=== PATIENT | female | born 1985 | race Caucasian/White ===

== ENCOUNTER 2017-05-22 13:38 | Inpatient (IN) | payer BC, OTHER ==
[~2017-05-22] VITALS: Ht 175.3 cm; Wt 78.6 kg
[~2017-05-22 13:38] MED LIST: OXYC-57 PO; PRENTAB69 PO
[2017-05-22] MEDS ORDERED: KETOROLAC TROMETHAMINE 30 MG/ML VIAL IV STA (16:08)
[2017-05-22] MEDS ORDERED: ACETAMINOPHEN 500 MG TAB PO STA (16:08)
--- NOTE | 2017-05-22 16:10 | EMERGENCY ROOM VISIT NOTE ---
History Report prepared by Patrizia: Jerrell Stiles Under the Supervision of: Dr. Geoff Lozano M.D. First contact with patient: 15:56 Chief Complaint: CHEST PAIN Stated Complaint: BREATHING, CHEST PAIN Nursing Triage Summary: Pt reports SOB and chest pain radiating into left shoulder blade for 3 days. feeling faint and lightheaded. pt reports started BC 2 months ago. Seen at [facility] and was referred for PE workup. pt reports recent flight to and from [place]. pt also reports abd pain and spotting, passed possible tissue 05/07. last period was 04/05. History of Present Illness The patient is a 31 year old white female with a past medical history of thrombocytopenia and anxiety who presents to the ED with a cc of persistent sharp chest pain beginning 3 days ago. Positive left shoulder blade pain, shortness of breath, visual disturbances, lightheadedness, bloody green mucous. Negative breast tenderness, bleeding, cough, fevers, chills, rashes, trauma. She states that she started getting the chest pain after flying back from a trip. The patient notes that the pain makes her breathing difficult. The patient says that she started control 2 months ago. She states that she has been spotting for 2 weeks. She says that she has no history of blood clots in the legs or lungs. Source of History: patient Onset: 3 days ago Position: chest Quality: sharp, other (pain) Timing: other (persistent) Associated Symptoms: + SOB, No fevers, No cough, No rash Note: Positive left shoulder blade pain, lightheadedness, visual disturbances, bloody green mucous. No trauma, breast tenderness, bleeding. Review of Systems See HPI for pertinent positives and negatives. A total of ten systems were reviewed and were otherwise negative. Past Medical & Surgical Medical Problems: (1) section Family History No pertinent family history Social History Smoking Status: Former Smoker Marital Status: Occupation Status: employed Current/Historical Medications Scheduled Acetaminophen Tab (Tylenol), 975 MG PO PRN UD Control Pills ( Control Pills), 1 TAB PO DAILY Naproxen (Aleve), 440 MG PO PRN UD Rivaroxaban (Xarelto), 15 MG PO BID Sertraline (Zoloft), 50 MG PO DAILY Allergies Coded Allergies: No Known Allergies (Unverified , 09/03/11) Physical Exam Vital Signs Date Time Temp Pulse Resp B/P (MAP) Pulse Ox O2 Delivery O2 Flow Rate FiO2 05/22/17 20:05 102 18 123/77 99 Room Air 05/22/17 16:53 36.5 82 18 113/68 99 Room Air 05/22/17 13:48 97 Room Air 05/22/17 13:43 36.9 120 18 136/86 97 Room Air Physical Exam GENERAL: Awake, alert, well-appearing, NAD HENT: Normocephalic, atraumatic. EYES: Normal conjunctiva. Sclera non-icteric. NECK: Supple. No nuchal rigidity. FROM. RESPIRATORY: CTAB, no rhonchi, wheezing, crackles CARDIAC: RRR, no MRG ABDOMEN: Soft, NTND, BS+ MSK: No reproducible chest wall TTP, no LE edema NEURO: GCS 15, CN 2-12 intact, moves all 4s on command SKIN: No rash or jaundice noted. No skin changes evident. Medical Decision & Procedures ER Provider Diagnostic Interpretation: Radiology results as stated below per my review and radiologist interpretation: CHEST CTA for PULMONARY ARTERIES CT DOSE: 464.33 mGycm HISTORY: Atypical chest pain. TECHNIQUE: Multiaxial CT images of the chest were performed following the intravenous administration of contrast to evaluate the pulmonary arteries. Maximal intensity projection images were also obtained. A dose lowering technique was utilized adhering to the principles of ALARA. COMPARISON STUDY: Chest 05/22/2017. FINDINGS: Normal caliber thoracic aorta with no evidence for dissection. The heart is normal in size. No evidence for right-sided heart strain. Trace left pleural effusion. There are multiple bilateral lower lobe segmental and subsegmental pulmonary emboli, left greater than right. No mediastinal or hilar lymphadenopathy. The visualized liver, spleen, and adrenal glands are unremarkable. The central airways are patent. No pneumothorax. There are few small peripheral airspace opacities seen within the base of the left lower lobe. These likely represent pulmonary infarcts. IMPRESSION: 1. Bilateral lower lobe pulmonary emboli. 2. Small peripheral airspace opacities seen within the base of the left lower lobe consistent with pulmonary infarcts. 3. Trace left pleural effusion. Electronically signed by: Edd Sal M.D. 05/22/2017 6:00 PM Dictated Date/Time: 05/22/2017 5:56 PM SINGLE VIEW CHEST CLINICAL HISTORY: Atypical chest pain. Dyspnea. FINDINGS: An AP, portable, upright chest radiograph is obtained. No prior studies are available for comparison at the time of dictation. The cardiomediastinal silhouette is unremarkable. There is minimal left basilar atelectasis. The lungs and pleural spaces are otherwise clear. No pneumothorax is seen. The bony thorax is grossly intact. IMPRESSION: No active disease in the chest. Electronically signed by: Darnell Latif M.D. 05/22/2017 5:00 PM Dictated Date/Time: 05/22/2017 4:59 PM Laboratory Results 05/22/17 16:38 Red Blood Count 4.69, Mean Corpuscular Volume 83.4, Mean Corpuscular Hemoglobin 28.6, Mean Corpuscular Hemoglobin Concent 34.3, Mean Platelet Volume 10.5, Neutrophils (%) (Auto) 79.5, Lymphocytes (%) (Auto) 14.2, Monocytes (%) (Auto) 5.9, Eosinophils (%) (Auto) 0.2, Basophils (%) (Auto) 0.1, Neutrophils # (Auto) 6.83, Lymphocytes # (Auto) 1.22, Monocytes # (Auto) 0.51, Eosinophils # (Auto) 0.02, Basophils # (Auto) 0.01 05/22/17 16:38 Test 05/22/17 16:38 05/22/17 16:58 White Blood Count 8.60 K/uL (4.8-10.8) Red Blood Count 4.69 M/uL (4.2-5.4) Hemoglobin 13.4 g/dL (12.0-16.0) Hematocrit 39.1 % (37-47) Mean Corpuscular Volume 83.4 fL (80-100) Mean Corpuscular Hemoglobin 28.6 pg (25-34) Mean Corpuscular Hemoglobin Concent 34.3 g/dl (32-36) Platelet Count 171 K/uL (130-400) Mean Platelet Volume 10.5 fL (7.4-10.4) Neutrophils (%) (Auto) 79.5 % Lymphocytes (%) (Auto) 14.2 % Monocytes (%) (Auto) 5.9 % Eosinophils (%) (Auto) 0.2 % Basophils (%) (Auto) 0.1 % Neutrophils # (Auto) 6.83 K/uL (1.4-6.5) Lymphocytes # (Auto) 1.22 K/uL (1.2-3.4) Monocytes # (Auto) 0.51 K/uL (0.11-0.59) Eosinophils # (Auto) 0.02 K/uL (0-0.5) Basophils # (Auto) 0.01 K/uL (0-0.2) RDW Standard Deviation 41.4 fL (36.4-46.3) RDW Coefficient of Variation 13.7 % (11.5-14.5) Immature Granulocyte % (Auto) 0.1 % Immature Granulocyte # (Auto) 0.01 K/uL (0.00-0.02) Prothrombin Time 9.8 SECONDS (9.0-12.0) Prothromb Time International Ratio 0.9 (0.9-1.1) Activated Partial Thromboplast Time 26.6 SECONDS (21.0-31.0) Partial Thromboplastin Ratio 1.0 Anion Gap 8.0 mmol/L (3-11) Est Creatinine Clear Calc Drug Dose 126.5 ml/min Estimated GFR () 136.0 Estimated GFR (Non- 117.4 BUN/Creatinine Ratio 17.4 (10-20) Calcium Level 9.5 mg/dl (8.5-10.1) Troponin I < 0.015 ng/ml (0-0.045) Human Chorionic Gonadotropin, Qual NEG (NEG) Magnesium Level 1.9 mg/dl (1.8-2.4) Total Bilirubin 0.5 mg/dl (0.2-1) Direct Bilirubin < 0.1 mg/dl (0-0.2) Aspartate Amino Transf (AST/SGOT) 14 U/L (15-37) Alanine Aminotransferase (ALT/SGPT) 18 U/L (12-78) Alkaline Phosphatase 74 U/L (45-117) Total Protein 7.5 gm/dl (6.4-8.2) Albumin 3.4 gm/dl (3.4-5.0) Lipase 180 U/L (73-393) Thyroid Stimulating Hormone (TSH) 2.100 uIu/ml (0.300-4.500) Laboratory results reviewed by me Medications Administered Medications (Trade) Dose Ordered Sig/Jesu Route Start Time Stop Time Status Last Admin Dose Admin Acetaminophen (Tylenol Tab) 1,000 mg NOW STAT PO 05/22/17 16:08 05/22/17 16:11 DC 05/22/17 16:42 1,000 MG Ketorolac Tromethamine (Toradol Inj) 30 mg NOW STAT IV 05/22/17 16:08 05/22/17 16:11 DC 05/22/17 16:42 30 MG Fentanyl Citrate (Fentanyl Inj) 50 mcg NOW ONCE IV 05/22/17 16:15 05/22/17 16:16 DC 05/22/17 16:45 50 MCG Rivaroxaban (Xarelto Tab) 15 mg DAILY STAT PO 05/22/17 18:36 05/22/17 18:37 DC 05/22/17 19:12 15 MG ECG Indication: chest pain Rate (beats per minute): 91 Rhythm: normal sinus Findings: other (normal intervals, normal axis, no other STS changes or TWI) Change: Patient's electrocardiogram interpreted by me. ED Course 1603: The patient was evaluated in room B10. A complete history and physical exam was performed. 1819: Discussed the patient's case with Mylene Metcalf. 1820: Upon reexamination, the patient was resting comfortably. 1844: I reevaluated the patient and she is resting. Discussed results and discharge instructions: she verbalized understanding and agreement. The patient will be discharged. 1945: I reevaluated the patient and talked to her mother. The patient will be evaluated for further treatment. 1999: Discussed the patient's case with Dr. Jatinder Metcalf marketing director assisted living. The patient will be evaluated for further treatment and disposition. Medical Decision The patient is a 31 year old white female with a past medical history of thrombocytopenia and anxiety who presents to the ED with a cc of persistent sharp chest pain beginning 3 days ago. Positive left shoulder blade pain, shortness of breath, visual disturbances, lightheadedness, bloody green mucous. Negative breast tenderness, bleeding, cough, fevers, chills, rashes, trauma. Differential diagnosis: Etiologies such as cardiac ischemia, aortic dissection, pulmonary embolism, pneumonia, pneumothorax, musculoskeletal, infections, pericarditis, myocarditis , esophageal rupture, gastrointestinal, as well as others were entertained. Patient was seen and evaluated the bedside. Patient had been referred from [facility] for a PE workup. The patient had been complaining of some pleuritic pain. Patient also had complained of some bloody tinged green mucus. Patient did have a recent plane flight from [place]. Patient does take oral contraceptives. Patient is a nonsmoker. Patient was not tachypnea nor hypoxic on exam. Patient did have blood work completed, EKG, troponin, chest x-ray, and CT PE protocol. Patient's blood work fairly unremarkable. Troponin negative. EKG nonischemic. Patient's chest x-ray was clear. Patient' s CT PE did show bilateral lower lobe pulmonary emboli. I did discuss the patient with the hospitalist and they agreed that Xarelto would be reasonable to start on the patient. The patient did have an ambulatory trial. The patient did complain some mild dizziness and was mildly tachycardic. Patient was never tachypneic nor hypoxic. I did discuss treatment further with the patient and family. They stated that they would prefer an observation period. Patient was given a first dose of Xarelto. I did discuss the patient with the hospitalist who agreed that the patient would be further evaluated and treated. Medication Reconcilliation Current Medication List: was personally reviewed by me Blood Pressure Screening Patient's blood pressure: Normal blood pressure Consults Time Called: 1810 Consulting Physician: Mylene Metcalf Returned Call: 1820 Discussed the patient's case with Mylene Metcalf. Additional Consults: Time Called: 1858 Consulted Physician: Dr. Jatinder Metcalf marketing director assisted living Returned Call: 1900 Additional Comments: Discussed the patient's case with Dr. Jatinder Metcalf marketing director assisted living. The patient will be evaluated for further treatment and disposition. Impression Primary Impression: Pulmonary emboli Additional Impression: Chest pain, pleuritic Critical Care I have personally spent greater than 35 minutes of critical care time in the direct management of this patient. This includes bedside care, interpretation of diagnostic studies, and testing, discussion with consultants, patient, and family members, and other required patient management activities. This 35 minutes is in excess of all separately billable procedures. Scribe Attestation The scribe's documentation has been prepared under my direction and personally reviewed by me in its entirety. I confirm that the note above accurately reflects all work, treatment, procedures, and medical decision making performed by me. Departure Information Dispostion Transfer Acute Care Facility Prescriptions Rivaroxaban (XARELTO) 15 Mg Tab 15 MG PO BID for 7 Days, #14 TAB Prov: Geoff Lozano M.D. 05/22/17 Referrals Buddy Mott M.D. (PCP) Patient Instructions My [facility] Problem Qualifiers Primary Impression: Pulmonary emboli Pulmonary embolism type: other Chronicity: acute Acute cor pulmonale presence: without acute cor pulmonale Qualified Codes: I26.99 - Other pulmonary embolism without acute cor pulmonale
[2017-05-22] MEDS ORDERED: FENTANYL CITRATE INJ 50 MCG/1 ML 2 ML VIAL IV ONE (16:15)
[2017-05-22] MEDS ORDERED: OPTIRAY 320 IV PRN (16:30)
[2017-05-22] MEDS ORDERED: BCPILLS PO (16:46)
[2017-05-22] MEDS ORDERED: NAPR1TAB9 PO (16:46)
[2017-05-22] MEDS ORDERED: SERT50TA PO (16:46)
[2017-05-22] MEDS ORDERED: ACET325T96 PO (16:46)
--- NOTE | 2017-05-22 17:01 | DIAGNOSTIC IMAGING REPORT ---
SINGLE VIEW CHEST CLINICAL HISTORY: Atypical chest pain. Dyspnea. FINDINGS: An AP, portable, upright chest radiograph is obtained. No prior studies are available for comparison at the time of dictation. The cardiomediastinal silhouette is unremarkable. There is minimal left basilar atelectasis. The lungs and pleural spaces are otherwise clear. No pneumothorax is seen. The bony thorax is grossly intact. IMPRESSION: No active disease in the chest. Electronically signed by: Darnell Latif M.D. 05/22/2017 5:00 PM Dictated Date/Time: 05/22/2017 4:59 PM
[2017-05-22 17:16] LABS: INR 0.9 (0.9-1.1); PTT PATIENT 26.6 SECONDS (21.0-31.0)
[2017-05-22 17:18] LABS: BASO % 0.1 %; BASO ABS # 0.01 K/uL (0-0.2); EOS % 0.2 %; EOS ABS # 0.02 K/uL (0-0.5); HEMATOCRIT 39.1 % (37-47); HEMOGLOBIN 13.4 g/dL (12.0-16.0); IG# 0.01 K/uL (0.00-0.02); LYMPH % 14.2 %; LYMPH ABS # 1.22 K/uL (1.2-3.4); MEAN CELL VOLUME 83.4 fL (80-100); MEAN CORPUSCULAR HEMOGLOBIN 28.6 pg (25-34); MEAN CORPUSCULAR HGB CONC 34.3 g/dl (32-36); MEAN PLATELET VOLUME 10.5 fL (7.4-10.4); MONO % 5.9 %; MONO ABS # 0.51 K/uL (0.11-0.59); NEUT % 79.5 %; NEUT ABS # 6.83 K/uL (1.4-6.5); PLATELET COUNT 171 K/uL (130-400); RED CELL DISTRIBUTION WIDTH CV 13.7 % (11.5-14.5); RED CELL DISTRIBUTION WIDTH SD 41.4 fL (36.4-46.3)
[2017-05-22 17:35] LABS: BLOOD UREA NITROGEN 12 mg/dl (7-18); CALCIUM 9.5 mg/dl (8.5-10.1); CARBON DIOXIDE 25 mmol/L (21-32); CREATININE 0.68 mg/dl (0.60-1.20); GLUCOSE 88 mg/dl (70-99); POTASSIUM 4.2 mmol/L (3.5-5.1); SODIUM 138 mmol/L (136-145)
--- NOTE | 2017-05-22 18:01 | DIAGNOSTIC IMAGING REPORT ---
CHEST CTA for PULMONARY ARTERIES CT DOSE: 464.33 mGycm HISTORY: Atypical chest pain. TECHNIQUE: Multiaxial CT images of the chest were performed following the intravenous administration of contrast to evaluate the pulmonary arteries. Maximal intensity projection images were also obtained. A dose lowering technique was utilized adhering to the principles of ALARA. COMPARISON STUDY: Chest 05/22/2017. FINDINGS: Normal caliber thoracic aorta with no evidence for dissection. The heart is normal in size. No evidence for right-sided heart strain. Trace left pleural effusion. There are multiple bilateral lower lobe segmental and subsegmental pulmonary emboli, left greater than right. No mediastinal or hilar lymphadenopathy. The visualized liver, spleen, and adrenal glands are unremarkable. The central airways are patent. No pneumothorax. There are few small peripheral airspace opacities seen within the base of the left lower lobe. These likely represent pulmonary infarcts. IMPRESSION: 1. Bilateral lower lobe pulmonary emboli. 2. Small peripheral airspace opacities seen within the base of the left lower lobe consistent with pulmonary infarcts. 3. Trace left pleural effusion. Electronically signed by: Edd Sal M.D. 05/22/2017 6:00 PM Dictated Date/Time: 05/22/2017 5:56 PM
[2017-05-22] MEDS ORDERED: RIVAROXABAN TAB 15 MG TAB PO STA (18:36)
[2017-05-22] MEDS ORDERED: RIVA1.5T PO (18:51)
--- NOTE | 2017-05-22 20:56 | DIAGNOSTIC IMAGING REPORT ---
CT SCAN OF THE ABDOMEN AND PELVIS WITHOUT IV CONTRAST CLINICAL HISTORY: Generalized abdominal pain. COMPARISON STUDY: Chest CT dated 05/22/2017. TECHNIQUE: CT scan of the abdomen and pelvis is performed from the lung bases to the proximal femora. Images are reviewed in the axial, sagittal, and coronal planes. IV contrast was not administered for this examination as per the referring clinician. Note that the examination was performed in suboptimal fashion without oral and IV contrast. A dose lowering technique was utilized adhering to the principles of ALARA. CT DOSE: 418.21 mGy.cm FINDINGS: Lung bases: The heart is normal in size and without pericardial effusion. Subpleural consolidative change is seen at the left lung base. The right lung base is clear. A trace left pleural effusion is identified. Liver: The unenhanced liver is normal in size, contour, and attenuation. There is no intrahepatic biliary ductal dilatation. Gallbladder: Unremarkable. Spleen: Normal in size and attenuation. Pancreas: Unremarkable. Adrenal glands: Unremarkable. Kidneys: The unenhanced kidneys are normal in size and without hydronephrosis. The renal collecting system is filled with excreted contrast. This degrades assessment for renal calculi. There is no evidence of contour deforming renal mass lesion. Abdominal vasculature: The abdominal aorta is normal in course and caliber. Bowel: There is mild colonic fecal retention. No bowel obstruction is seen. The appendix is well-visualized and normal. Peritoneum: There is no intraperitoneal free air or abdominal ascites. There is a small fat-containing umbilical hernia. Lymphadenopathy: None. Pelvic viscera: The bladder is decompressed and filled with excreted contrast. No bladder abnormality is seen. Uterus and adnexa are normal as imaged. Skeletal structures: No lytic or blastic lesions are seen. IMPRESSION: 1. Suboptimal examination without oral and IV contrast 2. There are no acute infectious or inflammatory findings in the abdomen or pelvis. 3. Subpleural opacities at the left lung base likely represent small pulmonary infarcts given the history of pulmonary emboli. Electronically signed by: Darnell Latif M.D. 05/22/2017 8:55 PM Dictated Date/Time: 05/22/2017 8:51 PM
[2017-05-22 21:24] LABS: ALBUMIN 3.4 gm/dl (3.4-5.0); ALKALINE PHOSPHATASE 74 U/L (45-117); ALT/SGPT 18 U/L (12-78); AST/SGOT 14 U/L (15-37); LIPASE 180 U/L (73-393); TOTAL PROTEIN 7.5 gm/dl (6.4-8.2)
[2017-05-22] MEDS ORDERED: SERTRALINE HCL 50 MG TAB PO ONE (22:05)
[2017-05-22 22:10] VITALS: BP 119/83; PULSE 86; TEMP 36.7; O2SAT 96; Ht 175.3 cm; Wt 78.6 kg
[2017-05-22] MEDS ORDERED: LORAZEPAM 2 MG/ML 1 ML VIAL IV PRN (22:15)
[2017-05-22] MEDS ORDERED: TRAMADOL HCL 50 MG TAB PO PRN (22:15)
[2017-05-22] MEDS ORDERED: ACETAMINOPHEN 325 MG TAB PO PRN (22:15)
[2017-05-22] MEDS ORDERED: MoRPHine SULFATE 4 MG/ML 1 ML CARP\\VIAL IV PRN (22:15)
[2017-05-22] MEDS ORDERED: PROCHLORPERAZINE INJ 5 MG in SYRINGE 4 ML IV PRN (22:15)
[2017-05-22] MEDS ORDERED: KETOROLAC TROMETHAMINE 15 MG/ML VIAL IV. STA (22:21)
[2017-05-22] MEDS ORDERED: SODIUM CHLORIDE 0.9% 1000ML 1,000 ML IV ONE (22:30)
[2017-05-22 23:57] VITALS: BP 109/70; PULSE 81; TEMP 36.5; O2SAT 98
[2017-05-23 04:24] VITALS: BP 102/63; PULSE 79; TEMP 36.5; O2SAT 98
--- NOTE | 2017-05-23 05:06 | HISTORY & PHYSICAL EXAMINATION ---
DATE OF ADMISSION: 05/22/2017 PRIMARY CARE DOCTOR: Dr. Mott. CHIEF COMPLAINT: Chest pain, shortness of breath. HISTORY OF PRESENT ILLNESS: History obtained from patient, mother and records. Medical history significant for mood disorder, intermittent tobacco abuse, history of panic attacks. Patient was in [place] a few days ago for work, had to deal with delayed flight, not moving around as much. The last few days, patient noted shortness of breath, pleuritic chest pain more on the left. No unusual cough symptoms. Intermittent achy leg pain. Patient also noted floaters in both eyes last few days. Denies headache, blurred vision. Some achy abdominal discomfort. Some nausea, no dysuria, no diarrhea. Patient was seen at PCP's office and sent to the Emergency Room. A CAT scan showed bilateral lower lobe pulmonary emboli, small peripheral airspace opacities in the base of left lower lobe consistent with pulmonary infarct, trace left pleural effusion. No evidence of right-sided heart strain. Patient given Xarelto in the ER. No prior history of blood clots. OCP started for endometriosis a few months ago. Patient uncomfortable going home. MEDICAL HISTORY: As above. SURGERIES: She has had dental surgery, laparoscopy, gynecologic procedures. HOME MEDICATIONS: Include Aleve, Zoloft, Tylenol. ALLERGIES: No known drug allergies. FAMILY HISTORY: Blood clots. PERSONAL AND SOCIAL HISTORY: Few cigarettes a day to none. 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 REVIEW OF SYSTEMS: As per HPI. All 10 systems reviewed. All other ROS negative. PHYSICAL EXAMINATION: VITAL SIGNS: Blood pressure 138/70, pulse rate 86, RR 16, temperature 36.6, sats 98 on room. GENERAL: Noted to be anxious, no respiratory distress. SKIN: Normal color. Warm. HEENT: Leaf palpebral conjunctivae. No ptosis. Dry mucosa. NECK: Supple. No tenderness. CHEST: Clear to auscultation. No tenderness. HEART: Regular rate and rhythm, no murmur. ABDOMEN: Soft, nontender. EXTREMITIES: No edema. No overt tenderness. No gross deformities. NEUROLOGIC: Coherent. No gross focality. LABORATORY DATA: Hemoglobin was noted to be 13.4, hematocrit 39, white cell count 8.6, platelet count 171. Sodium 130, potassium 4.2, chloride 105, CO2 25, BUN 12, creatinine 0.6, glucose was noted to be 88. Troponin noted to be 0.015. CT chest angio as above. CT abdomen and pelvis showed no acute pathology. EKG as per my interpretation, normal sinus rhythm, no ischemia. ASSESSMENT: 1. Acute pulmonary embolism. Patient predisposed by recent travel, OCP use, possible family history. Xarelto has already been started at the ER but the patient is uncomfortable going home. Rule out lower extremities as source of lung clot. 2. Mood disorder, at baseline as per patient 3. intermittent tobacco abuse. 4. Visual floaters, both eyes. No other eye symptoms 5. Vague abdominal discomfort Unremarkable CT abdomen pelvis findings Rule out UTI PLAN: PCU Xarelto Stop OCP. Venous LE Dopplers Analgesia for L pleuritic chest pain likely from pleural involvement secondary to pulmonary infarcts on CT. Home in the morning if patient comfortable. Ophthalmology evaluation for visual floaters. Check UA Patient counseled to stop smoking. DVT prophylaxis, Xarelto. Full code. MTDD
[2017-05-23 05:45] LABS: BASO % 0.2 %; BASO ABS # 0.01 K/uL (0-0.2); EOS % 0.6 %; EOS ABS # 0.04 K/uL (0-0.5); HEMATOCRIT 35.2 % (37-47); IG# 0.01 K/uL (0.00-0.02); LYMPH ABS # 1.77 K/uL (1.2-3.4); MEAN CORPUSCULAR HEMOGLOBIN 28.6 pg (25-34); MEAN CORPUSCULAR HGB CONC 34.1 g/dl (32-36); MEAN PLATELET VOLUME 10.4 fL (7.4-10.4); MONO ABS # 0.59 K/uL (0.11-0.59); NEUT ABS # 4.14 K/uL (1.4-6.5); PLATELET COUNT 152 K/uL (130-400); RED CELL DISTRIBUTION WIDTH CV 13.8 % (11.5-14.5); RED CELL DISTRIBUTION WIDTH SD 41.8 fL (36.4-46.3); WHITE BLOOD COUNT 6.56 K/uL (4.8-10.8)
--- NOTE | 2017-05-23 06:39 | DIAGNOSTIC IMAGING REPORT ---
VENOUS DOPPLER LWR EXT BILA HISTORY: Pain. Edema. leg pain COMPARISON STUDY: None. FINDINGS: There is normal compressibility, flow, and augmentation within the bilateral lower extremity deep venous systems. IMPRESSION: No DVT within the right or left lower extremity. The above report was generated using voice recognition software. It may contain grammatical, syntax or spelling errors. Electronically signed by: Anibal Singleton M.D. 05/23/2017 6:38 AM Dictated Date/Time: 05/23/2017 6:38 AM
[2017-05-23 07:27] VITALS: BP 100/65; PULSE 69; TEMP 36.7; O2SAT 99
[2017-05-23] MEDS ORDERED: RIVAROXABAN TAB 15 MG TAB PO SCH (09:00)
[2017-05-23 10:46] VITALS: BP 110/72; PULSE 82; TEMP 36.8; O2SAT 98
--- NOTE | 2017-05-23 13:43 | Progress Note ---
Medicine Progress Note Date & Time of Visit: May 23, 2017 at 13:11. Subjective Pt was seen and examined Sitting at the edge of the bed with no distress Pt said that she feels better She said that her vision improved Denies any chest pain, palpitation, dizziness Objective Last 8 Hrs Date Time Temp Pulse Resp B/P (MAP) Pulse Ox O2 Delivery O2 Flow Rate FiO2 05/23/17 12:00 Room Air 05/23/17 10:46 36.8 82 20 110/72 (85) 98 Room Air 05/23/17 08:00 Room Air 05/23/17 07:27 36.7 69 16 100/65 (77) 99 Physical Exam: General- No acute distress Head- atraumatic Eyes- PERRL, EOMI ENT- oropharynx clear Neck- supple, no JVD Lungs- No wheezing Heart- regular rhythm; no murmur Abdomen- normal bowel sounds, soft Extremities-no calf tenderness Neuro- alert, oriented x 3; PERRL, EOMI Skin- warm & dry Laboratory Results: Last 24 Hours Test 05/22/17 16:38 05/22/17 16:58 05/23/17 05:19 05/23/17 06:15 White Blood Count 8.60 K/uL 6.56 K/uL Red Blood Count 4.69 M/uL 4.19 M/uL Hemoglobin 13.4 g/dL 12.0 g/dL Hematocrit 39.1 % 35.2 % Mean Corpuscular Volume 83.4 fL 84.0 fL Mean Corpuscular Hemoglobin 28.6 pg 28.6 pg Mean Corpuscular Hemoglobin Concent 34.3 g/dl 34.1 g/dl Platelet Count 171 K/uL 152 K/uL Mean Platelet Volume 10.5 fL 10.4 fL Neutrophils (%) (Auto) 79.5 % 63.0 % Lymphocytes (%) (Auto) 14.2 % 27.0 % Monocytes (%) (Auto) 5.9 % 9.0 % Eosinophils (%) (Auto) 0.2 % 0.6 % Basophils (%) (Auto) 0.1 % 0.2 % Neutrophils # (Auto) 6.83 K/uL 4.14 K/uL Lymphocytes # (Auto) 1.22 K/uL 1.77 K/uL Monocytes # (Auto) 0.51 K/uL 0.59 K/uL Eosinophils # (Auto) 0.02 K/uL 0.04 K/uL Basophils # (Auto) 0.01 K/uL 0.01 K/uL RDW Standard Deviation 41.4 fL 41.8 fL RDW Coefficient of Variation 13.7 % 13.8 % Immature Granulocyte % (Auto) 0.1 % 0.2 % Immature Granulocyte # (Auto) 0.01 K/uL 0.01 K/uL Prothrombin Time 9.8 SECONDS Prothromb Time International Ratio 0.9 Activated Partial Thromboplast Time 26.6 SECONDS Partial Thromboplastin Ratio 1.0 Sodium Level 138 mmol/L Potassium Level 4.2 mmol/L Chloride Level 105 mmol/L Carbon Dioxide Level 25 mmol/L Anion Gap 8.0 mmol/L Blood Urea Nitrogen 12 mg/dl Creatinine 0.68 mg/dl Est Creatinine Clear Calc Drug Dose 126.5 ml/min Estimated GFR () 136.0 Estimated GFR (Non- 117.4 BUN/Creatinine Ratio 17.4 Random Glucose 88 mg/dl Calcium Level 9.5 mg/dl Troponin I < 0.015 ng/ml Human Chorionic Gonadotropin, Qual NEG Magnesium Level 1.9 mg/dl Total Bilirubin 0.5 mg/dl Direct Bilirubin < 0.1 mg/dl Aspartate Amino Transf (AST/SGOT) 14 U/L Alanine Aminotransferase (ALT/SGPT) 18 U/L Alkaline Phosphatase 74 U/L Total Protein 7.5 gm/dl Albumin 3.4 gm/dl Lipase 180 U/L Thyroid Stimulating Hormone (TSH) 2.100 uIu/ml Urine Color YELLOW Urine Appearance CLEAR Urine pH 5.5 Urine Specific [place] 1.034 Urine Protein NEG Urine Glucose (UA) NEG Urine Ketones NEG Urine Occult Blood NEG Urine Nitrite NEG Urine Bilirubin NEG Urine Urobilinogen NEG Urine Leukocyte Esterase NEG Assessment & Plan Acute pulmonary embolism. CTA chest showed bilateral lower lobe pulmonary emboli. Small peripheral airspace opacities seen within the base of the left lower lobe consistent with pulmonary infarcts. Mostly provoke due to OCP starting about 2 months ago and recently traveling to [place] Starting on Xarelto, case aide called pharmacy and will only cost pt $45 Doppler of LE showed no DVT within the right or left lower extremity. Xarelto side effects discussed with pt such abnormal bleeding (hematuria and bloody stools) Echo pending Will need to be on anticoagulant for at least 3 months Discontinue OCP for now, recommended pt to follow with PCP or [employer] for other OCP options Advised pt to stop smoking Consider hypercoagulable work up once off Xarelto Visual disturbances Seeing flutter in both eyes Possible related to migraine since pt has hx of migraine case discussed with Dr. Earl, rather to see pt on Friday as an outpatient Appt schedule on 05/26 @ 9:[address] Earl Endometriosis Recently starting on OCP, will discontinue due to acute PE Follow up with [employer]/PCP Anxiety Continue zoloft stable Tobacco abuse Counseling on smoking cessation DVT px on Xarelto CODE STATUS FULL CODE Disposition Will discharge home today Current Inpatient Medications: Current Inpatient Medications Medications (Trade) Dose Ordered Sig/Jesu Route Start Time Stop Time Status Last Admin Dose Admin Ioversol (Optiray 320) 100 ml UD PRN IV 05/22/17 16:30 05/26/17 16:29 Acetaminophen (Tylenol Tab) 650 mg Q4H PRN PO 05/22/17 22:15 06/21/17 22:14 05/23/17 07:58 650 MG Tramadol HCl (Ultram Tab) not relieved by tylenol @ Q6H PRN PO 05/22/17 22:15 06/21/17 22:14 Prochlorperazine Edisylate 5 mg/ Syringe 5 ml @ 5 mls/min Q6H PRN IV 05/22/17 22:15 06/21/17 22:14 Lorazepam (Ativan Inj) 0.5 mg Q4H PRN IV 05/22/17 22:15 06/21/17 22:14 Morphine Sulfate (MoRPHine SULFATE INJ) 4 mg Q3H PRN IV 05/22/17 22:15 06/05/17 22:14 Sertraline HCl (Zoloft Tab) 50 mg HS PO 05/23/17 21:00 06/22/17 20:59 Rivaroxaban (Xarelto Tab) 15 mg BID PO 05/23/17 09:00 06/22/17 08:59 05/23/17 07:55 15 MG
[2017-05-23 15:05] VITALS: BP 106/69; PULSE 77; TEMP 36.9; O2SAT 98
--- NOTE | 2017-05-23 16:30 | ECHOCARDIOGRAM REPORT ---
*NOTICE TO RECEIVING REPUBLICAN AGENCY This information is strictly Confidential and protected under [place] law. [place] law prohibits you from making any further disclosure of this information unless further disclosure is expressly permitted by the written consent of the person to whom it pertains or is authorized by law. A general authorization for the release of medical or other information is not sufficient for this purpose. Hospital accepts no responsibility if the information is made available to any other person, INCLUDING THE PATIENT. Interpretation Summary * Name: ESPERANZA WELCH Study Date: 05/23/2017 01:57 PM BP: 110/72 mmHg * Patient Location: C.2T\S\S229\S\1 HR: 82 * : 1985 (M/d/yyyy) Gender: Female Height: 69 in * Age: 31 yrs Ethnicity: [place] Weight: 173 lb * Ordering Physician: Cristi Huerta * Referring Physician: Concetta Nix PA-C * Performed By: Concetta Alonso RDCS * * Reason For Study: PULMONARY EMBOLISM * BSA: 1.9 m2 * -- Conclusions -- * Normal LV chamber size and wall thickness. * Normal LV systolic function, EF 60-65%. * No segmental left ventricular wall motion abnormalities are noted. * Normal diastolic function. * The right ventricular cavity size is normal (basal dimension <4.2 cm in right ventricular apical 4-chamber view). Normal RV systolic function by TAPSE. * No significant valvular pathology. Procedure Details * A complete two-dimensional transthoracic echocardiogram was performed (2D, M-mode, Doppler and color flow Doppler). Left Ventricle * The left ventricle is normal in size. * There is normal left ventricular wall thickness. * Left ventricular systolic function is normal. * No segmental left ventricular wall motion abnormalities are noted. * Ejection Fraction = 55-60%. * The left ventricular wall motion is normal. Right Ventricle * The right ventricular cavity size is normal (basal dimension <4.2 cm in right ventricular apical 4-chamber view). * The right ventricular systolic function is normal as assessed by tricuspid annular plane systolic excursion (TAPSE) (normal >1.5 cm). Atria * The left atrial size is normal. * Right atrial size is normal. * No ASD detected; PFO is not assessed. Mitral Valve * The mitral valve is normal in structure and function. Tricuspid Valve * The tricuspid valve is normal in structure and function. Aortic Valve * The aortic valve is normal in structure and function. Pulmonic Valve * The pulmonary valve is not well seen, but the Doppler examination is normal without significant regurgitation or stenosis. Great Vessels * The aortic root is normal size. Pericardium/Pleural * There is no pericardial effusion. Left Ventricular Diastolic Function * Pulse wave TDI of the anterior and posterior mitral annulas demonstrates normal LV relaxation MMode 2D Measurements and Calculations IVSd 0.76 cm IVSs 1.2 cm LVIDd 3.8 cm LVIDs 2.6 cm LVPWd 1.1 cm LVPWs 1.3 cm IVS/LVPW 0.72 FS 32.3 % EDV(Teich) 60.9 ml ESV(Teich) 23.6 ml EF(Teich) 61.3 % EDV(cubed) 53.7 ml ESV(cubed) 16.7 ml EF(cubed) 68.9 % % IVS thick 51.5 % % LVPW thick 21.3 % LV mass(C)d 101.6 grams LV mass(C)dI 52.3 grams/m\S\2 LV mass(C)s 90.4 grams LV mass(C)sI 46.6 grams/m\S\2 SV(Teich) 37.3 ml SI(Teich) 19.2 ml/m\S\2 SV(cubed) 37.0 ml SI(cubed) 19.0 ml/m\S\2 Ao root diam 2.7 cm Ao root area 5.7 cm\S\2 LA dimension 2.8 cm LA/Ao 1.0 LVAd ap4 23.1 cm\S\2 LVLd ap4 7.8 cm EDV(MOD-sp4) 56.0 ml EDV(sp4-el) 57.9 ml LVAs ap4 13.1 cm\S\2 LVLs ap4 6.6 cm ESV(MOD-sp4) 21.9 ml ESV(sp4-el) 22.2 ml EF(MOD-sp4) 60.9 % EF(sp4-el) 61.6 % LVAd ap2 26.3 cm\S\2 LVLd ap2 8.3 cm EDV(MOD-sp2) 69.3 ml EDV(sp2-el) 70.4 ml LVAs ap2 12.9 cm\S\2 LVLs ap2 6.1 cm ESV(MOD-sp2) 23.5 ml ESV(sp2-el) 23.2 ml EF(MOD-sp2) 66.1 % EF(sp2-el) 67.0 % LVLd %diff 6.0 % EDV(MOD-bp) 64.3 ml LVLs %diff -7.73 % ESV(MOD-bp) 23.1 ml EF(MOD-bp) 64.1 % SV(MOD-sp4) 34.1 ml SI(MOD-sp4) 17.6 ml/m\S\2 SV(MOD-sp2) 45.8 ml SI(MOD-sp2) 23.6 ml/m\S\2 SV(MOD-bp) 41.2 ml SI(MOD-bp) 21.2 ml/m\S\2 SV(sp4-el) 35.6 ml SI(sp4-el) 18.3 ml/m\S\2 SV(sp2-el) 47.2 ml SI(sp2-el) 24.3 ml/m\S\2 Doppler Measurements and Calculations MV E max rachel 92.2 cm/sec MV A max rachel 59.7 cm/sec MV E/A 1.5 MV dec time 0.25 sec Ao V2 max 120.8 cm/sec Ao max PG 5.8 mmHg Ao max PG (full) 1.1 mmHg LV V1 max PG 4.7 mmHg LV V1 max 108.2 cm/sec
[2017-05-23] MEDS ORDERED: RIVA1TAB7 PO (17:00)
--- NOTE | 2017-05-23 17:29 | Discharge Instructions ---
Discharge Instructions Date of Service May 23, 2017. Admission Reason for Admission: Pulmonary Emboli Discharge Discharge Diagnosis / Problem: (1) Pulmonary emboli VTE Date & Time Date of VTE Diagnosis: May 22, 2017 Time of VTE Diagnosis: 17:56 Discharge Goals Goal(s): Decrease discomfort, Improve function, Improve disease control Activity Recommendations Activity Limitations: resume your previous activity (as tolerated) . Instructions / Follow-Up Instructions / Follow-Up Follow up with your primary care provider Dr. Mott on 05/28 @ 10:30 am follow up with ophthalmology Dr. Earl on 05/26 @ 9:30 AM [address], [place], [place] Follow up with your OBGYN for the endometriosis Starting on Xarelto 15mg twice a day for 21 days, then on the day take Xarelto 20mg daily. Please avoid any fall/trauma or any activity that put at risks of falling Medication Instructions: Xarelto Your condition is typically treated with an anticoagulant. Anticoagulants will thin your blood to help prevent new clots. * You should take her medication exactly as directed. * Never skip a dose. * Never take a double dose. If you miss a dose, take it as soon as you remember. * Avoid any NSAIDs such as (Motrin, Aleve, naproxen, Ibuprofen, ..) due to increase risk of bleeding Call your Primary Care doctor if you experience any of the following: * Swelling or Pain in your leg * Sudden, continuous pain deep in a muscle * Pain that worsens when you are active or when you stand still for a long time * Chest Pain * Sudden Shortness of Breath * Rapid or pounding heart beat * Fainting * Dizziness * Cough with blood or bloody sputum * Sweating more than normal * Bruises * Heavy or uncontrolled bleeding * Blood in your urine, stool or vomit * Black or tarry stools Caring for Your Self at Home: * Avoid sitting, standing or lying down for long periods without moving your legs and feet * When traveling by car, stop to get out and move around at least once every 3 hours * On long airplane, train or bus rides, get up and move around when possible * If you can't get up, wiggle your toes and tighten your calves to keep your blood moving Follow Up: It is important for you to keep your follow up appointments with your medical provider. Current Hospital Diet Patient's current hospital diet: Regular Diet Discharge Diet Recommended Diet: Regular Diet Pending Studies Studies pending at discharge: no Medical Emergencies . Who to Call and When: Medical Emergencies: If at any time you feel your situation is an emergency, please call 911 immediately. . Non-Emergent Contact Non-Emergency issues call your: Primary Care Provider Call Non-Emergent contact if: you have any medication questions . . "Provider Documentation" section prepared by Cristi Huerta. . VTE Core Measure Inpt VTE Proph given/why not?: Other Anticoagulation (xarelto)
[2017-05-23 17:38] VITALS: BP 106/69; PULSE 77; TEMP 36.9; O2SAT 98
[2017-05-23] MEDS ORDERED: SERTRALINE HCL 50 MG TAB PO SCH (21:00)
--- NOTE | 2017-05-25 07:57 | Discharge Summary ---
Discharge Summary Date of Service May 25, 2017. Discharge Summary Admission Date: May 22, 2017 at 21:08 Discharge Date: May 23, 2017 Discharge Disposition: Home Principal Diagnosis: Acute pulmonary embolism Secondary Diagnoses/Problems: Visual disturbances Endometriosis Tobacco abuse Anxiety Procedures: VENOUS DOPPLER LWR EXT BILA HISTORY: Pain. Edema. leg pain COMPARISON STUDY: None. FINDINGS: There is normal compressibility, flow, and augmentation within the bilateral lower extremity deep venous systems. IMPRESSION: No DVT within the right or left lower extremity. The above report was generated using voice recognition software. It may contain grammatical, syntax or spelling errors. Electronically signed by: Anibal Singleton M.D. 05/23/2017 6:38 AM Dictated Date/Time: 05/23/2017 6:[address] SCAN OF THE ABDOMEN AND PELVIS WITHOUT IV CONTRAST CLINICAL HISTORY: Generalized abdominal pain. COMPARISON STUDY: Chest CT dated 05/22/2017. TECHNIQUE: CT scan of the abdomen and pelvis is performed from the lung bases to the proximal femora. Images are reviewed in the axial, sagittal, and coronal planes. IV contrast was not administered for this examination as per the referring clinician. Note that the examination was performed in suboptimal fashion without oral and IV contrast. A dose lowering technique was utilized adhering to the principles of ALARA. CT DOSE: 418.21 mGy.cm FINDINGS: Lung bases: The heart is normal in size and without pericardial effusion. Subpleural consolidative change is seen at the left lung base. The right lung base is clear. A trace left pleural effusion is identified. Liver: The unenhanced liver is normal in size, contour, and attenuation. There is no intrahepatic biliary ductal dilatation. Gallbladder: Unremarkable. Spleen: Normal in size and attenuation. Pancreas: Unremarkable. Adrenal glands: Unremarkable. Kidneys: The unenhanced kidneys are normal in size and without hydronephrosis. The renal collecting system is filled with excreted contrast. This degrades assessment for renal calculi. There is no evidence of contour deforming renal mass lesion. Abdominal vasculature: The abdominal aorta is normal in course and caliber. Bowel: There is mild colonic fecal retention. No bowel obstruction is seen. The appendix is well-visualized and normal. Peritoneum: There is no intraperitoneal free air or abdominal ascites. There is a small fat-containing umbilical hernia. Lymphadenopathy: None. Pelvic viscera: The bladder is decompressed and filled with excreted contrast. No bladder abnormality is seen. Uterus and adnexa are normal as imaged. Skeletal structures: No lytic or blastic lesions are seen. IMPRESSION: 1. Suboptimal examination without oral and IV contrast 2. There are no acute infectious or inflammatory findings in the abdomen or pelvis. 3. Subpleural opacities at the left lung base likely represent small pulmonary infarcts given the history of pulmonary emboli. Electronically signed by: Darnell Latif M.D. 05/22/2017 8:55 PM Dictated Date/Time: 05/22/2017 8:51 PM CHEST CTA for PULMONARY ARTERIES CT DOSE: 464.33 mGycm HISTORY: Atypical chest pain. TECHNIQUE: Multiaxial CT images of the chest were performed following the intravenous administration of contrast to evaluate the pulmonary arteries. Maximal intensity projection images were also obtained. A dose lowering technique was utilized adhering to the principles of ALARA. COMPARISON STUDY: Chest 05/22/2017. FINDINGS: Normal caliber thoracic aorta with no evidence for dissection. The heart is normal in size. No evidence for right-sided heart strain. Trace left pleural effusion. There are multiple bilateral lower lobe segmental and subsegmental pulmonary emboli, left greater than right. No mediastinal or hilar lymphadenopathy. The visualized liver, spleen, and adrenal glands are unremarkable. The central airways are patent. No pneumothorax. There are few small peripheral airspace opacities seen within the base of the left lower lobe. These likely represent pulmonary infarcts. IMPRESSION: 1. Bilateral lower lobe pulmonary emboli. 2. Small peripheral airspace opacities seen within the base of the left lower lobe consistent with pulmonary infarcts. 3. Trace left pleural effusion. Electronically signed by: Edd Sal M.D. 05/22/2017 6:00 PM Dictated Date/Time: 05/22/2017 5:56 PM [~ rep ct add3]] SINGLE VIEW CHEST CLINICAL HISTORY: Atypical chest pain. Dyspnea. FINDINGS: An AP, portable, upright chest radiograph is obtained. No prior studies are available for comparison at the time of dictation. The cardiomediastinal silhouette is unremarkable. There is minimal left basilar atelectasis. The lungs and pleural spaces are otherwise clear. No pneumothorax is seen. The bony thorax is grossly intact. IMPRESSION: No active disease in the chest. Electronically signed by: Darnell Latif M.D. 05/22/2017 5:00 PM Dictated Date/Time: 05/22/2017 4:59 PM ECHO Interpretation Summary * Name: ESPERANZA WELCH Study Date: 05/23/2017 01:57 PM BP: 110/72 mmHg * Patient Location: [facility]\\S\\29\\S\\1 HR: 82 * : 1985 (M/d/yyyy) Gender: Female Height: 69 in * Age: 31 yrs Ethnicity: [place] Weight: 173 lb * Ordering Physician: Cristi Huerta * Referring Physician: Concetta Nix PA-C * Performed By: Concetta Alonso RDCS * * Reason For Study: PULMONARY EMBOLISM * BSA: 1.9 m2 * -- Conclusions -- * Normal LV chamber size and wall thickness. * Normal LV systolic function, EF 60-65%. * No segmental left ventricular wall motion abnormalities are noted. * Normal diastolic function. * The right ventricular cavity size is normal (basal dimension <4.2 cm in right ventricular apical 4-chamber view). Normal RV systolic function by TAPSE. * No significant valvular pathology. Procedure Details * A complete two-dimensional transthoracic echocardiogram was performed (2D, M-mode, Doppler and color flow Doppler). Left Ventricle * The left ventricle is normal in size. * There is normal left ventricular wall thickness. * Left ventricular systolic function is normal. * No segmental left ventricular wall motion abnormalities are noted. * Ejection Fraction = 55-60%. * The left ventricular wall motion is normal. Right Ventricle * The right ventricular cavity size is normal (basal dimension <4.2 cm in right ventricular apical 4-chamber view). * The right ventricular systolic function is normal as assessed by tricuspid annular plane systolic excursion (TAPSE) (normal >1.5 cm). Atria * The left atrial size is normal. * Right atrial size is normal. * No ASD detected; PFO is not assessed. Mitral Valve * The mitral valve is normal in structure and function. Tricuspid Valve * The tricuspid valve is normal in structure and function. Aortic Valve * The aortic valve is normal in structure and function. Pulmonic Valve * The pulmonary valve is not well seen, but the Doppler examination is normal without significant regurgitation or stenosis. Great Vessels * The aortic root is normal size. Pericardium/Pleural * There is no pericardial effusion. Left Ventricular Diastolic Function * Pulse wave TDI of the anterior and posterior mitral annulas demonstrates normal LV relaxation Medication Reconciliation Changed Medications: Rivaroxaban (Xarelto Starter Pack 15 & 20 mg) 1 Tab Tab 1 TAB PO UD for 30 Days (Changed from: Rivaroxaban (Xarelto) 15 Mg Tab 15 Mg PO BID 7 Days #14 TAB) Xarelto 15mg BID for 21 days, then 20mg daily Continued Medications: Acetaminophen Tab (Tylenol) 325 Mg Tab 975 MG PO PRN UD, TAB Sertraline (Zoloft) 50 Mg Tab 50 MG PO DAILY, TAB Discontinued Medications: Control Pills ( Control Pills) Tab 1 TAB PO DAILY, TAB Naproxen (Aleve) 220 Mg Tab 440 MG PO PRN UD, TAB Admission Information HPI (per Admitting provider): CHIEF COMPLAINT: Chest pain, shortness of breath. HISTORY OF PRESENT ILLNESS: History obtained from patient, mother and records. Medical history significant for mood disorder, intermittent tobacco abuse, history of panic attacks. Patient was in [place] a few days ago for work, had to deal with delayed flight, not moving around as much. The last few days, patient noted shortness of breath, pleuritic chest pain more on the left. No unusual cough symptoms. Intermittent achy leg pain. Patient also noted floaters in both eyes last few days. Denies headache, blurred vision. Some achy abdominal discomfort. Some nausea, no dysuria, no diarrhea. Patient was seen at PCP's office and sent to the Emergency Room. A CAT scan showed bilateral lower lobe pulmonary emboli, small peripheral airspace opacities in the base of left lower lobe consistent with pulmonary infarct, trace left pleural effusion. No evidence of right-sided heart strain. Patient given Xarelto in the ER. No prior history of blood clots. OCP started for endometriosis a few months ago. Patient uncomfortable going home. Physical Exam (per Admitting): VITAL SIGNS: Blood pressure 138/70, pulse rate 86, RR 16, temperature 36.6, sats 98 on room. GENERAL: Noted to be anxious, no respiratory distress. SKIN: Normal color. Warm. HEENT: [place] palpebral conjunctivae. No ptosis. Dry mucosa. NECK: Supple. No tenderness. CHEST: Clear to auscultation. No tenderness. HEART: Regular rate and rhythm, no murmur. ABDOMEN: Soft, nontender. EXTREMITIES: No edema. No overt tenderness. No gross deformities. NEUROLOGIC: Coherent. No gross focality. Hospital Course Acute pulmonary embolism. CTA chest showed bilateral lower lobe pulmonary emboli. Small peripheral airspace opacities seen within the base of the left lower lobe consistent with pulmonary infarcts. Mostly provoke due to OCP starting about 2 months ago and recently traveling to [place] Starting on Xarelto, correctional counselor/case manager called pharmacy and will only cost pt $45 Doppler of LE showed no DVT within the right or left lower extremity. Xarelto side effects discussed with pt such abnormal bleeding (hematuria and bloody stools) Echo pending Will need to be on anticoagulant for at least 3 months Discontinue OCP for now, recommended pt to follow with PCP or [facility] for other OCP options Advised pt to stop smoking Consider hypercoagulable work up once off Xarelto Visual disturbances Seeing flutter in both eyes Possible related to migraine since pt has hx of migraine case discussed with Dr. Earl, rather to see pt on Friday as an outpatient Appt schedule on 05/26 @ 9:[address] Earl Endometriosis Recently starting on OCP, will discontinue due to acute PE Follow up with [facility]/PCP Anxiety Continue zoloft stable Tobacco abuse Counseling on smoking cessation DVT px on Xarelto CODE STATUS FULL CODE Disposition Will discharge home today Total time spent on discharge = 35 min This includes examination of the patient, discharge planning, medication reconciliation, and communication with other providers. Discharge Instructions Discharge Instructions Date of Service May 23, 2017. Admission Reason for Admission: Pulmonary Emboli Discharge Discharge Diagnosis / Problem: (1) Pulmonary emboli VTE Date & Time Date of VTE Diagnosis: May 22, 2017 Time of VTE Diagnosis: 17:56 Discharge Goals Goal(s): Decrease discomfort, Improve function, Improve disease control Activity Recommendations Activity Limitations: resume your previous activity (as tolerated) . Instructions / Follow-Up Instructions / Follow-Up Follow up with your primary care provider Dr. Mott on 05/28 @ 10:30 am follow up with ophthalmology Dr. Earl on 05/26 @ 9:30 AM [address], [place], [place] Follow up with your OBGYN for the endometriosis Starting on Xarelto 15mg twice a day for 21 days, then on the th day take Xarelto 20mg daily. Please avoid any fall/trauma or any activity that put at risks of falling Medication Instructions: Xarelto Your condition is typically treated with an anticoagulant. Anticoagulants will thin your blood to help prevent new clots. * You should take her medication exactly as directed. * Never skip a dose. * Never take a double dose. If you miss a dose, take it as soon as you remember. * Avoid any NSAIDs such as (Motrin, Aleve, naproxen, Ibuprofen, ..) due to increase risk of bleeding Call your Primary Care doctor if you experience any of the following: * Swelling or Pain in your leg * Sudden, continuous pain deep in a muscle * Pain that worsens when you are active or when you stand still for a long time * Chest Pain * Sudden Shortness of Breath * Rapid or pounding heart beat * Fainting * Dizziness * Cough with blood or bloody sputum * Sweating more than normal * Bruises * Heavy or uncontrolled bleeding * Blood in your urine, stool or vomit * Black or tarry stools Caring for Your Self at Home: * Avoid sitting, standing or lying down for long periods without moving your legs and feet * When traveling by car, stop to get out and move around at least once every 3 hours * On long airplane, train or bus rides, get up and move around when possible * If you can't get up, wiggle your toes and tighten your calves to keep your blood moving Follow Up: It is important for you to keep your follow up appointments with your medical provider. Current Hospital Diet Patient's current hospital diet: Regular Diet Discharge Diet Recommended Diet: Regular Diet Pending Studies Studies pending at discharge: no Medical Emergencies . Who to Call and When: Medical Emergencies: If at any time you feel your situation is an emergency, please call 911 immediately. . Non-Emergent Contact Non-Emergency issues call your: Primary Care Provider Call Non-Emergent contact if: you have any medication questions . . "Provider Documentation" section prepared by Cristi Huerta. . VTE Core Measure Inpt VTE Proph given/why not?: Other Anticoagulation (xarelto) Additional Copies To Buddy Mott M.D.
== END 2017-05-23 18:34 | disposition home or self-care (01) | DRG 176 ==
LOC: C.EDB 13:39 → C.2T 21:08 → ENRESERV 21:18
PROVIDERS: ADMIT Internal Medicine; ATTEND Internal Medicine
DX: I26.99 Other pulmonary embolism without acute cor pulmonale (principal); F17.200 Nicotine dependence, unspecified, uncomplicated; F39 Unspecified mood [affective] disorder; N80.9 Endometriosis, unspecified; F41.9 Anxiety disorder, unspecified; H53.19 Other subjective visual disturbances

== ENCOUNTER 2017-06-05 23:39 | Emergency (ER) | payer BC ==
[~2017-06-05] VITALS: Ht 175.3 cm; Wt 80.1 kg
[~2017-06-05 23:39] MED LIST changes: +ACET325T96 PO; -OXYC-57 PO; -PRENTAB69 PO; +RIVA1TAB7 PO; +SERT50TA PO
[2017-06-05 23:41] VITALS: TEMP 36.8; Ht 175.3 cm; Wt 80.1 kg
[2017-06-05 23:55] VITALS: O2SAT 100
[2017-06-06] MEDS ORDERED: RIVA1TAB7 PO (00:18)
[2017-06-06 01:03] LABS: BASO % 0.3 %; BASO ABS # 0.02 K/uL (0-0.2); EOS ABS # 0.06 K/uL (0-0.5); HEMATOCRIT 37.9 % (37-47); HEMOGLOBIN 12.8 g/dL (12.0-16.0); IG# 0.01 K/uL (0.00-0.02); LYMPH % 38.7 %; LYMPH ABS # 2.44 K/uL (1.2-3.4); MEAN CELL VOLUME 84.2 fL (80-100); MEAN CORPUSCULAR HEMOGLOBIN 28.4 pg (25-34); MEAN CORPUSCULAR HGB CONC 33.8 g/dl (32-36); MEAN PLATELET VOLUME 10.4 fL (7.4-10.4); MONO % 6.2 %; MONO ABS # 0.39 K/uL (0.11-0.59); NEUT % 53.6 %; NEUT ABS # 3.39 K/uL (1.4-6.5); PLATELET COUNT 252 K/uL (130-400); RED CELL DISTRIBUTION WIDTH CV 13.4 % (11.5-14.5); RED CELL DISTRIBUTION WIDTH SD 40.4 fL (36.4-46.3); WHITE BLOOD COUNT 6.31 K/uL (4.8-10.8)
[2017-06-06] MEDS ORDERED: ACETAMINOPHEN 325 MG TAB PO STA (01:04)
[2017-06-06 01:11] LABS: ALBUMIN 3.4 gm/dl (3.4-5.0); CALCIUM 8.8 mg/dl (8.5-10.1); CREATININE 0.81 mg/dl (0.60-1.20); POTASSIUM 3.8 mmol/L (3.5-5.1)
[2017-06-06 01:12] LABS: INR 1.2 (0.9-1.1); PTT PATIENT 33.6 SECONDS (21.0-31.0)
--- NOTE | 2017-06-06 01:15 | EMERGENCY ROOM VISIT NOTE ---
History Report prepared by Patrizia: Sean Gardiner Under the Supervision of: Dr. Joie Allan M.D. First contact with patient: 00:53 Chief Complaint: RESPIRATORY PROBLEMS Stated Complaint: SOB, CHEST PAIN History of Present Illness The patient is a 31 year old female who presents to the Emergency Room with complaints of persistent shortness of breath starting earlier tonight as she was going to bed. She additionally states that she is having upper abdominal pain worse with inspiration. The patient notes that the abdominal pain is worse on the right side. She additionally notes that yesterday she was having some back pain, and her right foot has been intermittently numb. The patient states that she was diagnosed a week and a half ago with a PE, and she is currently on Xarelto. She states that she was on control, though she states that she is no longer on it. She additionally notes that she was in [place] before she had the PE. She states that she has not taken anything for pain. The patient reports that she still has her gallbladder. Her last bowel movement was this morning, and it was normal. Source of History: patient Onset: earlier tonight Position: other (glonal) Quality: other (shortness of breath) Timing: other (persistent) Associated Symptoms: + chest pain, + back pain, + numbness (right foot) Review of Systems See HPI for pertinent positives & negatives. A total of 10 systems reviewed and were otherwise negative. Past Medical & Surgical Medical Problems: (1) section Family History No pertinent family history Social History Smoking Status: Never Smoker Marital Status: Occupation Status: employed Current/Historical Medications Scheduled Acetaminophen Tab (Tylenol), 975 MG PO PRN UD Rivaroxaban (Xarelto Starter Pack 15 & 20 mg), 15 MG PO BID Sertraline (Zoloft), 50 MG PO DAILY Allergies Coded Allergies: No Known Allergies (Unverified , 06/06/17) Physical Exam Vital Signs Date Time Temp Pulse Resp B/P (MAP) Pulse Ox O2 Delivery O2 Flow Rate FiO2 06/06/17 03:36 72 16 112/64 99 Room Air 06/05/17 23:55 100 Room Air 06/05/17 23:55 100 Room Air 06/05/17 23:50 80 06/05/17 23:41 36.8 80 18 131/80 98 Room Air Physical Exam Vital signs reviewed. General: Well-appearing female, in no significant distress. HEENT: No scleral icterus, PERRLA, neck supple. Atraumatic. Cardiovascular: Regular rate and rhythm, no extra sounds. Pulmonary: Clear to auscultation bilaterally, normal work of breathing. Abdomen: Mild epigastric tenderness. Soft, nondistended, positive bowel sounds. Musculoskeletal: Atraumatic, no peripheral edema. Neurologic: Patient awake alert and oriented x 3, full strength in all 4 extremities. Cranial nerves 2 through 12 grossly intact. Skin: Warm, dry, no rash Medical Decision & Procedures ER Provider Diagnostic Interpretation: X-ray results as stated below per interpretation by me: Chest X-ray: No focal lung consolidation. No failure. Normal mediastinal silhouette. Radiology results as stated below per my review and radiologist interpretation: US RUQ: Gallbladder appears partially contracted. Patient NPO 6 hours prior to study. No gallstones are identified. No wall thickening of the gallbladder. Negative sonographic Moulton's . Normal caliber CBD. Laboratory Results 06/05/17 23:50 Red Blood Count 4.50, Mean Corpuscular Volume 84.2, Mean Corpuscular Hemoglobin 28.4, Mean Corpuscular Hemoglobin Concent 33.8, Mean Platelet Volume 10.4, Neutrophils (%) (Auto) 53.6, Lymphocytes (%) (Auto) 38.7, Monocytes (%) (Auto) 6.2, Eosinophils (%) (Auto) 1.0, Basophils (%) (Auto) 0.3, Neutrophils # (Auto) 3.39, Lymphocytes # (Auto) 2.44, Monocytes # (Auto) 0.39, Eosinophils # (Auto) 0.06, Basophils # (Auto) 0.02 06/05/17 23:50 Test 06/05/17 23:50 06/06/17 00:42 White Blood Count 6.31 K/uL (4.8-10.8) Red Blood Count 4.50 M/uL (4.2-5.4) Hemoglobin 12.8 g/dL (12.0-16.0) Hematocrit 37.9 % (37-47) Mean Corpuscular Volume 84.2 fL (80-100) Mean Corpuscular Hemoglobin 28.4 pg (25-34) Mean Corpuscular Hemoglobin Concent 33.8 g/dl (32-36) Platelet Count 252 K/uL (130-400) Mean Platelet Volume 10.4 fL (7.4-10.4) Neutrophils (%) (Auto) 53.6 % Lymphocytes (%) (Auto) 38.7 % Monocytes (%) (Auto) 6.2 % Eosinophils (%) (Auto) 1.0 % Basophils (%) (Auto) 0.3 % Neutrophils # (Auto) 3.39 K/uL (1.4-6.5) Lymphocytes # (Auto) 2.44 K/uL (1.2-3.4) Monocytes # (Auto) 0.39 K/uL (0.11-0.59) Eosinophils # (Auto) 0.06 K/uL (0-0.5) Basophils # (Auto) 0.02 K/uL (0-0.2) RDW Standard Deviation 40.4 fL (36.4-46.3) RDW Coefficient of Variation 13.4 % (11.5-14.5) Immature Granulocyte % (Auto) 0.2 % Immature Granulocyte # (Auto) 0.01 K/uL (0.00-0.02) Prothrombin Time 12.2 SECONDS (9.0-12.0) Prothromb Time International Ratio 1.2 (0.9-1.1) Activated Partial Thromboplast Time 33.6 SECONDS (21.0-31.0) Partial Thromboplastin Ratio 1.3 Anion Gap 8.0 mmol/L (3-11) Est Creatinine Clear Calc Drug Dose 115.1 ml/min Estimated GFR () 113.0 Estimated GFR (Non- 97.5 BUN/Creatinine Ratio 11.3 (10-20) Calcium Level 8.8 mg/dl (8.5-10.1) Total Bilirubin 0.3 mg/dl (0.2-1) Aspartate Amino Transf (AST/SGOT) 15 U/L (15-37) Alanine Aminotransferase (ALT/SGPT) 24 U/L (12-78) Alkaline Phosphatase 75 U/L (45-117) Total Protein 7.0 gm/dl (6.4-8.2) Albumin 3.4 gm/dl (3.4-5.0) Globulin 3.6 gm/dl (2.5-4.0) Albumin/Globulin Ratio 0.9 (0.9-2) Bedside Troponin I < 0.030 ng/ml (0-0.045) Laboratory results per my review. Medications Administered Medications (Trade) Dose Ordered Sig/Jesu Route Start Time Stop Time Status Last Admin Dose Admin Acetaminophen (Tylenol Tab) 650 mg NOW STAT PO 06/06/17 01:04 06/06/17 01:06 DC 06/06/17 01:13 650 MG ECG Indication: SOB/dyspnea Rate (beats per minute): 83 Rhythm: normal sinus (with sinus arrhythmia) Findings: RBBB (incomplete), no acute ischemic change, no ectopy Change: Patient's electrocardiogram interpreted by me. ED Course 0053: Past medical records reviewed. The patient was evaluated in room C7. A complete history and physical examination was performed. 0104: Tylenol Tab 650mg PO 0354: Upon reevaluation, the patient appeared to have improvement of her symptoms. I discussed findings with her. She verbalized agreement of the treatment plan. She was discharged home. Medical Decision Differential diagnosis: Etiologies such as infections, reactive airway disease, pneumonia, pneumothorax , COPD, CHF, cardiac ischemia, pulmonary embolism, musculoskeletal, gastrointestinal, as well as others were entertained. This pt was evaluated and appeared to be in no distress. IV access was obtained and lab work was drawn. Pt was placed on the conveyor maintenance mechanic and found to have stable VS. Oxygenation is stable on RA. Pt was recently treated with Xaralto for PE. At this time I do not feel additional CT is useful. This is likely a pleurisy from the pulmonary infarcts seen on CT previously. US of GB was performed and is largely normal. Pt was advised to continue tylenol for pain. She will f/u with her PCP this week for reevaluation and return to the ED for worsening of symptoms or any medical concerns. Medication Reconcilliation Current Medication List: was personally reviewed by me Blood Pressure Screening Patient's blood pressure: Normal blood pressure Impression Primary Impression: Pleurisy Additional Impression: Pulmonary emboli Scribe Attestation The scribe's documentation has been prepared under my direction and personally reviewed by me in its entirety. I confirm that the note above accurately reflects all work, treatment, procedures, and medical decision making performed by me. Departure Information Dispostion Home / Self-Care Referrals Buddy Mott M.D. (PCP) Forms HOME CARE DOCUMENTATION FORM, IMPORTANT VISIT INFORMATION, WORK / SCHOOL INSTRUCTIONS Patient Instructions [facility], Pleurisy Additional Instructions Diagnosis: Pulmonary emboli, pleurisy Continue your medications as prescribed. Tylenol 650 mg every 6 hours as needed for pain. Return to the emergency department for fevers, increasing shortness of breath, increased heart rate or any medical concerns. Follow-up with your physician this week for reevaluation. Problem Qualifiers
[2017-06-06 03:36] VITALS: BP 112/64; PULSE 72; O2SAT 99
--- NOTE | 2017-06-06 06:47 | DIAGNOSTIC IMAGING REPORT ---
CHEST ONE VIEW PORTABLE CLINICAL HISTORY: Shortness of breath COMPARISON STUDY: 05/22/2017 FINDINGS: The cardiac and mediastinal contours are normal. There is no evidence of focal pulmonary consolidation. There is no evidence of failure. No pleural effusions are visualized.[ IMPRESSION: No active disease in the chest. Electronically signed by: Lv Acosta M.D. 06/06/2017 6:46 AM Dictated Date/Time: 06/06/2017 6:46 AM
--- NOTE | 2017-06-06 06:51 | DIAGNOSTIC IMAGING REPORT ---
BILIARY ULTRASOUND CLINICAL HISTORY: Epigastric and right upper quadrant abdominal pain COMPARISON STUDY: CT scan dated 05/22/2017 FINDINGS: The pancreas appears sonographically normal. The liver appears sonographically normal. The gallbladder is contracted but appears otherwise normal. There is no ductal dilatation. The common bile duct measures 2 mm. There is no right-sided hydronephrosis. IMPRESSION: Normal biliary ultrasound. Electronically signed by: Lv Acosta M.D. 06/06/2017 6:49 AM Dictated Date/Time: 06/06/2017 6:49 AM
== END 2017-06-06 04:00 | disposition home or self-care (01) ==
LOC: C.EDB 23:40
DX: I26.99 Other pulmonary embolism without acute cor pulmonale (principal); R09.1 Pleurisy; Z79.02 Long term (current) use of antithrombotics/antiplatelets; Z79.899 Other long term (current) drug therapy